=== PATIENT | female | born 1970 | race Caucasian/White ===

== ENCOUNTER 2016-09-20 14:15 | Inpatient (IN) ==
[2016-09-20] MEDS ORDERED: HYDROmorphone 2 MG/1 ML VIAL IV STA ×2 (14:44→16:10)
[2016-09-20] MEDS ORDERED: ONDANSETRON 4 MG/2 ML VIAL IV STA (14:44)
[2016-09-20] MEDS ORDERED: HYDROmorphone 2 MG/1 ML VIAL ONE (14:53)
[2016-09-20] MEDS ORDERED: ONDANSETRON 4 MG/2 ML VIAL ONE (14:53)
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
[2016-09-20 16:40] LABS: Basophils # 0.1 10*3/uL (0.0-0.2); Basophils % 0.4 % (0.0-0.8); Eosinophils # 0.3 10*3/uL (0.0-0.87); Eosinophils % 1.9 % (0.00-10.9); Hematocrit 40.9 VOL% (35.7-47.0); Hemoglobin 13.9 GM/DL (12.0-16.0); Immature Granulocytes Absolute 0.13 #; Lymphocytes # 2.6 10*3/uL (1.4-4.0); Lymphocytes % 19.3 % (21.3-54.2); Mean Corpuscular Hemoglobin 31 PG (27-34); Mean Corpuscular Volume 90.5 FL (87-102); Mean Platelet Volume 9.5 FL (9.6-12.0); Monocytes # 0.7 10*3/uL (0.11-0.8); Monocytes % 5.5 % (1.7-12.7); Neutrophils # 9.6 10*3/uL (1.4-7.4); Neutrophils % 71.9 % (38.7-73.9); Platelet Count 317 T/CUMM (130-400); Red Blood Count 4.52 MC/CUMM (3.8-5.5); Red Cell Distribution Width 12.4 % (9.3-17.3); White Blood Count 13.4 T/CUMM (4-12)
[2016-09-20] MEDS ORDERED: ACETAMINOPHEN 325 MG TABLET PO PRN (16:41)
[2016-09-20] MEDS ORDERED: ONDANSETRON 4 MG/2 ML VIAL IV PRN (16:41)
[2016-09-20 16:47] LABS: PT Patient Result 10.4 SECS; Partial Thromboplastin Time 28.8 SECS (0-40)
--- NOTE | 2016-09-20 17:09 | XRay Report ---
XR foot 2V RT Clinical Information: post reduction Comparison: Prior radiograph 09/20/2016 at 3:14 PM Findings: Again, there is a mildly comminuted acute fracture of the base of the great toe metatarsal bone. The amount of dorsal subluxation is decreased on the current study lateral view. Overlying soft tissue swelling however remains noted. Again, there is irregularity at the proximal phalanx of the great toe suspicious for a nondisplaced fracture. Impression: As above. PROCEDURE INTERPRETED AT [facility] DEPARTMENT OF RADIOLOGY Final Report Signed by: Seth Young
[2016-09-20 17:20] LABS: Alanine Aminotransferase 151 U/L (13-56); Albumin 4.1 G/DL (3.4-5.0); Alkaline Phosphatase 65 U/L (45-117); Aspartate Amino Transferase 142 U/L (0-37); Bilirubin,Total < 0.39 MG/DL (0.2-1.0); Blood Urea Nitrogen 17 MG/DL (7-18); Calcium 9.4 MG/DL (8.5-10.1); Glucose 106 MG/DL (74-106); Osmolality,Calculated 280.4 MOS/KG (273-304); Potassium 3.8 MMOL/L (3.5-5.1); Sodium 140 MMOL/L (136-145); Total Protein 7.5 G/DL (6.4-8.3)
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
[2016-09-20] MEDS: ALBUTEROL/IPRATROPIUM 3 ML NEB RESP TX SCH (19:15)
[2016-09-20] MEDS: HYDROmorphone 2 MG/1 ML VIAL IV PRN ×2 (20:19→23:58)
[2016-09-20] MEDS: DEXTROSE 5% NACL 0.45% 1,000 ML IV SCH (20:19)
[2016-09-21] MEDS: ALBUTEROL/IPRATROPIUM 3 ML NEB RESP TX SCH ×4 (00:25→19:18)
[2016-09-21] MEDS: DEXTROSE 5% NACL 0.45% 1,000 ML IV SCH (02:19)
[2016-09-21] MEDS: HYDROmorphone 2 MG/1 ML VIAL IV PRN ×5 (04:15→20:14)
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
[2016-09-21] MEDS ORDERED: ceFAZolin 2,000 MG in PREMIX 1 EACH IV ONE (06:50)
[2016-09-21] MEDS ORDERED: MIDAZOLAM 2 MG/2 ML VIAL ONE (08:53)
[2016-09-21] MEDS ORDERED: ROPIVACAINE 0.5% 30 ML VIAL ONE (08:53)
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
[2016-09-21] MEDS ORDERED: fentaNYL 100 MCG/2 ML VIAL ONE (08:54)
[2016-09-21] MEDS ORDERED: LIDOCAINE 2% 5 ML VIAL ONE (10:06)
[2016-09-21] MEDS ORDERED: ESMOLOL 100 MG/10 ML VIAL IV ONE (10:06)
[2016-09-21] MEDS ORDERED: ONDANSETRON 4 MG/2 ML VIAL ONE ×2 (10:06→11:48)
[2016-09-21] MEDS ORDERED: PROPOFOL 200 MG/20 ML VIAL IV ONE (10:06)
--- NOTE | 2016-09-21 11:28 | XRay Report ---
Referring Physician: Brian Yeager Exam: XR foot 2V RT Date: September 21, 2016 at 9:55 AM Reason: ORIF right foot Comparison: Right foot x-rays September 20, 2016 Findings: 2 images of the right foot were provided after performance of the procedure. Fluoroscopy time was 10 seconds. Images demonstrate surgical pinning of the first digit, traversing the first tarsometatarsal joint. Position and alignment appear satisfactory. Several known fractures are present. They are better demonstrated on the recent CT. Impression: Images are presumed satisfactory for treatment planning purposes. PROCEDURE INTERPRETED AT [facility] DEPARTMENT OF RADIOLOGY Final Report Signed by: Dr. Manjit Ibrahim
[2016-09-21] MEDS ORDERED: HYDROmorphone 2 MG/1 ML VIAL ONE (11:47)
[2016-09-21] MEDS ORDERED: ONDANSETRON 4 MG/2 ML VIAL IV PRN (11:47)
--- NOTE | 2016-09-21 11:54 | Anesthesia Post-Op ---
Anesthesia Post OP - Post Ansesthetic Evaluation Patient seen in post op: Yes Resp: within normal limits CV: within normal limits Mental: within normal limits Temp: within normal limits [id number]: within normal limits Nausea and Vomiting: within normal limits Pain: within normal limits
[2016-09-21] MEDS: PANTOPRAZOLE 40 MG TABLET PO SCH (13:51)
[2016-09-21] MEDS: ACETAMINOPHEN 500 MG TABLET PO SCH ×2 (17:14→22:09)
[2016-09-21] MEDS: LACTATED RINGERS 1,000 ML IV SCH (17:22)
[2016-09-21] MEDS: ceFAZolin 2,000 MG in PREMIX 1 EACH IV SCH (17:25)
[2016-09-22] MEDS: HYDROmorphone 2 MG/1 ML VIAL IV PRN ×5 (01:14→20:42)
[2016-09-22] MEDS ORDERED: PROPRANOLOL 40 MG TABLET PO ONE (01:22)
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
[2016-09-22 01:49] LABS: Basophils % 0.6 % (0.0-0.8); Eosinophils % 3.7 % (0.00-10.9); Hemoglobin 11.4 GM/DL (12.0-16.0); Immature Granulocytes % 0.8 %; Lymphocytes % 37.5 % (21.3-54.2); Mean Corpuscular HGB Conc 35.6 GM/DL (32-36); Mean Corpuscular Hemoglobin 31 PG (27-34); Mean Corpuscular Volume 87.4 FL (87-102); Monocytes % 9.2 % (1.7-12.7); Neutrophils % 48.2 % (38.7-73.9); Platelet Count 241 T/CUMM (130-400); Red Blood Count 3.66 MC/CUMM (3.8-5.5); Red Cell Distribution Width 12.2 % (9.3-17.3); White Blood Count 5.1 T/CUMM (4-12)
[2016-09-22 01:50] LABS: Eosinophils # 0.2 10*3/uL (0.0-0.87); Immature Granulocytes Absolute 0.04 #; Lymphocytes # 1.9 10*3/uL (1.4-4.0); Monocytes # 0.5 10*3/uL (0.11-0.8); Neutrophils # 2.5 10*3/uL (1.4-7.4)
[2016-09-22] MEDS ORDERED: ceFAZolin 2,000 MG in PREMIX 1 EACH IV ONE (02:00)
[2016-09-22] MEDS ORDERED: PROPRANOLOL LA 80 MG CAPSULE PO ONE (02:00)
[2016-09-22 02:13] LABS: Alanine Aminotransferase 247 U/L (13-56); Albumin 3.4 G/DL (3.4-5.0); Alkaline Phosphatase 78 U/L (45-117); Aspartate Amino Transferase 224 U/L (0-37); Blood Urea Nitrogen 6 MG/DL (7-18); Calcium 8.3 MG/DL (8.5-10.1); Glucose 113 MG/DL (74-106); Osmolality,Calculated 279.3 MOS/KG (273-304); Potassium 3.5 MMOL/L (3.5-5.1); Sodium 141 MMOL/L (136-145); Total Protein 6.3 G/DL (6.4-8.3); Troponin I Only < 0.015 NG/ML (0.00-0.045)
[2016-09-22] MEDS: ceFAZolin 2,000 MG in PREMIX 1 EACH IV SCH (02:19)
[2016-09-22] MEDS: ACETAMINOPHEN 500 MG TABLET PO SCH ×2 (02:29→08:44)
[2016-09-22] MEDS: ALBUTEROL/IPRATROPIUM 3 ML NEB RESP TX SCH ×4 (02:46→19:13)
[2016-09-22] MEDS: LACTATED RINGERS 1,000 ML IV SCH (05:43)
[2016-09-22] MEDS: ENOXAPARIN 40 MG/0.4 ML SYRINGE SUBCUT SCH (06:01)
--- NOTE | 2016-09-22 07:18 | XRay Report ---
Referring Physician: Aramis Tran MD Exam: XR chest 1V Date: September 22, 2016 at 12:51 AM Reason: Chest pain Comparison: Chest one view portable October 12, 2015 Findings: The cardiac silhouette is normal in size. The right hemidiaphragm is again mildly elevated. There are right perihilar and bibasilar opacities. This likely represents atelectasis and possibly pneumonia. No pneumothorax is identified. No acute osseous process is seen. Impression: There are right perihilar and bibasilar opacities. This likely represents atelectasis and possibly pneumonia. Follow-up is recommended to confirm resolution. PROCEDURE INTERPRETED AT [facility] DEPARTMENT OF RADIOLOGY Final Report Signed by: Dr. Manjit Ibrahim
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
[2016-09-22] MEDS: ASPIRIN EC 81 MG TABLET PO SCH (08:42)
[2016-09-22] MEDS: hydroCHLOROthiazide 25 MG TABLET PO SCH (08:42)
[2016-09-22] MEDS: GABAPENTIN 300 MG CAPSULE PO SCH ×2 (08:42→20:42)
[2016-09-22] MEDS: metFORMIN 500 MG TABLET PO SCH ×2 (08:42→18:17)
[2016-09-22] MEDS: POTASSIUM CITRATE 10 MEQ TABLET PO SCH ×2 (08:43→20:41)
[2016-09-22] MEDS: ALLOPURINOL 300 MG TABLET PO SCH (08:43)
[2016-09-22] MEDS: LACTOBACILLUS ACIDOPHILUS/BULGARICUS CAPLET PO SCH (08:43)
[2016-09-22] MEDS: PANTOPRAZOLE 40 MG TABLET PO SCH (08:43)
[2016-09-22] MEDS ORDERED: GLUCAGON 1 MG VIAL IM PRN (08:57)
[2016-09-22] MEDS ORDERED: DEXTROSE 50% 25 GM/50 ML VIAL IV PRN (08:57)
[2016-09-22] MEDS ORDERED: NON-FORMULARY MEDICATION (Omeprazole [Prilosec] 40 MG) PO SCH (09:00)
[2016-09-22] MEDS ORDERED: PROPRANOLOL LA 80 MG CAPSULE PO SCH (09:00)
--- NOTE | 2016-09-22 09:50 | EKG Report ---
Stationary ECG Study [facility] Test Date: 09/22/2016 12:41:41 AM Pat Name: MICHELL CHRISTENSEN Department: Room: 116 Gender: F [employer]otive Finance Manager: : 1970 Requested by: Aramis Tran Order Number: [id number] Reading MD: LENKA NIETO Intervals [place] Rate: 126 P: 59 PA: 153 QRS: 71 QRSD: 106 T: 98 QT: 299 QTc: 374 Interpretive Statements SINUS TACHYCARDIA Electronically Signed On 09-22-16 16:10:43 CDT by LENKA NIETO [email or web address]
[2016-09-22] MEDS: INSULIN REGULAR 100 UNIT/ML SUBCUT SCH ×3 (11:21→20:13)
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
[2016-09-22] MEDS: LIRAGLUTIDE 1.2 UNIT SUBCUT SCH (14:45)
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
--- NOTE | 2016-09-22 16:07 | ECHO Report ---
Greta العراقي Exam Date: 09/22/2016 15:28 Referring Physician: Technologist: Gillian Miles RDCS Age: 46 Ht (in): 62 Wt (lb): 246 Gender: F Exam Location: [facility] Echo pain, unspecified, Shortness of breath, Essential (primary) hypertension, Nicotine dependence, cigarettes, uncomplicated, Elevated LFTs, NIDDM, ZAFAR, Dyslipidemia, GERD, Tachycardia, unspecified BP: 113 / 58 HR: 96 Rhythm: Sinus Technical Quality: Technically difficult study IMPRESSIONS Technically difficult study Left ventricular ejection fraction is estimated at 60 %. No significant valvular disease is seen. There is no pericardial effusion or other abnormality. MEASUREMENTS (Male / Female) Normal Values 2D ECHO LV Diastolic Diameter PLAX 4.2 cm 4.2 - 5.9 / 3.9 - 5.3 cm LV Systolic Diameter PLAX 2.9 cm LV Fractional Shortening PLAX 30.9 % IVS Diastolic Thickness 0.9 cm 0.6 - 1.0 / 0.6 - 0.9 cm LVPW Diastolic Thickness 0.9 cm 0.6 - 1.0 / 0.6 - 0.9 cm RV Internal Dim ED PLAX 2.1 cm Aortic Root Diameter 2.5 cm LA Systolic Diameter LX 3.1 cm 3.0 - 4.0 / 2.7 - 3.8 cm DOPPLER TR Peak Velocity 297.0 cm/s TR Peak Gradient 35.3 mmHg FINDINGS Left Ventricle Normal left ventricular cavity size. Normal left ventricular wall thickness. Left ventricular ejection fraction is estimated at 60 %. Right Ventricle The right ventricle is normal in size and function. Right Atrium The right atrium is normal in size. Left Atrium The left atrium is normal in size. Mitral Valve Morphologically normal mitral valve without significant stenosis or prolapse. There is no mitral regurgitation. Aortic Valve Morphologically normal aortic valve without significant sclerosis or stenosis. There is no aortic regurgitation. Tricuspid Valve Morphologically normal tricuspid valve without significant stenosis or regurgitation. Pulmonary artery systolic pressure is normal. Pulmonic Valve Morphologically normal pulmonic valve without significant stenosis. There is no pulmonic regurgitation. Pericardium Normal pericardium without effusion. Aorta Normal ascending aorta dimension. Brian Larry (Electronically Signed) Final Date: 22 Sep 2016 16:06
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
[2016-09-22] MEDS: FENOFIBRATE 145 MG TABLET PO SCH (20:41)
[2016-09-22] MEDS: PROPRANOLOL LA 80 MG CAPSULE PO SCH (20:42)
[2016-09-22] MEDS: AMITRIPTYLINE 25 MG TABLET PO SCH (20:42)
[2016-09-22] MEDS ORDERED: ROSUVASTATIN 10 MG TABLET PO SCH (21:00)
[2016-09-23] MEDS: ALBUTEROL/IPRATROPIUM 3 ML NEB RESP TX SCH ×4 (01:47→19:07)
[2016-09-23] MEDS: HYDROmorphone 2 MG/1 ML VIAL IV PRN ×2 (02:04→18:37)
[2016-09-23] MEDS: ENOXAPARIN 40 MG/0.4 ML SYRINGE SUBCUT SCH (04:32)
[2016-09-23 07:29] LABS: Basophils % 0.5 % (0.0-0.8); Eosinophils # 0.3 10*3/uL (0.0-0.87); Eosinophils % 4.1 % (0.00-10.9); Hematocrit 30.7 VOL% (35.7-47.0); Hemoglobin 10.8 GM/DL (12.0-16.0); Immature Granulocytes % 0.5 %; Immature Granulocytes Absolute 0.03 #; Lymphocytes # 2.3 10*3/uL (1.4-4.0); Lymphocytes % 37.9 % (21.3-54.2); Mean Corpuscular HGB Conc 35.2 GM/DL (32-36); Mean Corpuscular Hemoglobin 31 PG (27-34); Mean Corpuscular Volume 87.5 FL (87-102); Monocytes # 0.5 10*3/uL (0.11-0.8); Monocytes % 8.5 % (1.7-12.7); Neutrophils % 48.5 % (38.7-73.9); Platelet Count 242 T/CUMM (130-400); Red Blood Count 3.51 MC/CUMM (3.8-5.5); Red Cell Distribution Width 12.5 % (9.3-17.3); White Blood Count 6.1 T/CUMM (4-12)
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
[2016-09-23 08:01] LABS: Bilirubin,Total 0.6 MG/DL (0.2-1.0); Calcium 8.3 MG/DL (8.5-10.1); Osmolality,Calculated 275.5 MOS/KG (273-304); Potassium 3.6 MMOL/L (3.5-5.1)
[2016-09-23] MEDS: INSULIN REGULAR 100 UNIT/ML SUBCUT SCH ×4 (08:03→21:20)
[2016-09-23] MEDS: hydroCHLOROthiazide 25 MG TABLET PO SCH (08:30)
[2016-09-23] MEDS: GABAPENTIN 300 MG CAPSULE PO SCH ×2 (08:30→21:23)
[2016-09-23] MEDS: ALLOPURINOL 300 MG TABLET PO SCH (08:30)
[2016-09-23] MEDS: ASPIRIN EC 81 MG TABLET PO SCH (08:31)
[2016-09-23] MEDS: PANTOPRAZOLE 40 MG TABLET PO SCH (08:31)
[2016-09-23] MEDS: POTASSIUM CITRATE 10 MEQ TABLET PO SCH ×2 (08:31→21:22)
[2016-09-23] MEDS: LACTOBACILLUS ACIDOPHILUS/BULGARICUS CAPLET PO SCH (08:31)
[2016-09-23] MEDS: LIRAGLUTIDE 1.2 UNIT SUBCUT SCH (08:35)
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
[2016-09-23 09:28] LABS: Hepatitis A Ab IgM Quant 0.08 Index; Hepatitis A Ab IgM Result Negative (Negative); Hepatitis B Core IgM Quant 0.24 Index; Hepatitis B Core IgM Result Negative (Negative); Hepatitis B Surface Ag Quant 0.25 Index; Hepatitis B Surface Ag Result Negative (Negative); Hepatitis C Virus Ab Quant 0.12 Index; Hepatitis C Virus Ab Result Negative (Negative)
[2016-09-23] MEDS: metFORMIN 500 MG TABLET PO SCH (10:50)
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
[2016-09-23] MEDS: FENOFIBRATE 145 MG TABLET PO SCH (21:21)
[2016-09-23] MEDS: AMITRIPTYLINE 25 MG TABLET PO SCH (21:23)
[2016-09-23] MEDS: PROPRANOLOL LA 80 MG CAPSULE PO SCH (21:23)
[2016-09-24] MEDS: ALBUTEROL/IPRATROPIUM 3 ML NEB RESP TX SCH ×3 (00:23→12:40)
[2016-09-24 05:02] LABS: Basophils % 0.5 % (0.0-0.8); Eosinophils # 0.3 10*3/uL (0.0-0.87); Eosinophils % 5.2 % (0.00-10.9); Hematocrit 32.6 VOL% (35.7-47.0); Hemoglobin 11.2 GM/DL (12.0-16.0); Immature Granulocytes % 0.7 %; Immature Granulocytes Absolute 0.04 #; Lymphocytes # 2.6 10*3/uL (1.4-4.0); Lymphocytes % 44.4 % (21.3-54.2); Mean Corpuscular HGB Conc 34.4 GM/DL (32-36); Mean Corpuscular Hemoglobin 30 PG (27-34); Mean Corpuscular Volume 88.6 FL (87-102); Mean Platelet Volume 8.9 FL (9.6-12.0); Monocytes # 0.5 10*3/uL (0.11-0.8); Monocytes % 8.7 % (1.7-12.7); Neutrophils # 2.4 10*3/uL (1.4-7.4); Neutrophils % 40.5 % (38.7-73.9); Platelet Count 286 T/CUMM (130-400); Red Blood Count 3.68 MC/CUMM (3.8-5.5); Red Cell Distribution Width 12.1 % (9.3-17.3)
[2016-09-24 05:34] LABS: Albumin 3.1 G/DL (3.4-5.0); Bilirubin,Total 0.6 MG/DL (0.2-1.0); Osmolality,Calculated 273.7 MOS/KG (273-304); Potassium 3.6 MMOL/L (3.5-5.1); Total Protein 6.2 G/DL (6.4-8.3)
[2016-09-24] MEDS: ENOXAPARIN 40 MG/0.4 ML SYRINGE SUBCUT SCH (07:25)
[2016-09-24] MEDS: INSULIN REGULAR 100 UNIT/ML SUBCUT SCH ×2 (07:59→11:30)
--- NOTE | 2016-09-24 08:24 | Orthopedic Progress Note ---
Assessment and Plan (1) Metatarsal fracture Status: Acute Assessment and plan: XR R knee/elbow NWB RLE Ok to d/c home wheelchair for mobilization Current Visit: Yes Qualifiers: Encounter type: initial encounter Metatarsal bone: first Fracture type: closed Fracture alignment: displaced Laterality: right Qualified Code(s): S92.311A - Displaced fracture of first metatarsal bone, right foot, initial encounter for closed fracture (2) Navicular fracture of ankle Status: Acute Assessment and plan: see above Current Visit: Yes Qualifiers: Encounter type: initial encounter Fracture type: closed Fracture alignment: nondisplaced (3) Cuneiform fracture, foot Status: Acute Assessment and plan: see above Current Visit: Yes Orthopedics - Subjective Interval history: c/o R knee and R elbow pain splint clean and dry, sensate in toes Exam - Constitutional Vitals: Period Temp Pulse Resp BP Sys/Matthew Pulse Ox Last 24 Hr 97.1 F-98.8 F 79-106 15-22 101-138/66-80 93-99 Results - Labs CBC & BMP: 09/24/16 04:38 09/24/16 04:38 Specialty Discharge - Follow Up or Referrals Follow up with: Brian Yeager MD [Physician] - 10/07/16 1:30 pm
[2016-09-24] MEDS: DEXTROSE 5% NACL 0.45% 1,000 ML IV SCH (08:26)
[2016-09-24] MEDS: LACTATED RINGERS 1,000 ML IV SCH (08:27)
[2016-09-24] MEDS: ALLOPURINOL 300 MG TABLET PO SCH (08:57)
[2016-09-24] MEDS: ASPIRIN EC 81 MG TABLET PO SCH (08:57)
[2016-09-24] MEDS: POTASSIUM CITRATE 10 MEQ TABLET PO SCH (08:57)
[2016-09-24] MEDS: PANTOPRAZOLE 40 MG TABLET PO SCH (08:57)
[2016-09-24] MEDS: LACTOBACILLUS ACIDOPHILUS/BULGARICUS CAPLET PO SCH (08:57)
[2016-09-24] MEDS: hydroCHLOROthiazide 25 MG TABLET PO SCH (08:57)
[2016-09-24] MEDS: GABAPENTIN 300 MG CAPSULE PO SCH (08:57)
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
[2016-09-24] MEDS: LIRAGLUTIDE 1.2 UNIT SUBCUT SCH (10:10)
[2016-09-24 11:46] VITALS: BP 107/65
== END 2016-09-24 14:16 | disposition home or self-care (01) | DRG 504 ==
LOC: EDBD → EDUNIT# → N.EDINP 14:15 → N.ED 14:15 → N.3E 18:25 → N.ICU 09-22 00:59 → N.3E 09-23 11:36
PROVIDERS: ADMIT Surgery; ATTEND Surgery

== ENCOUNTER 2016-09-26 00:30 | Inpatient (IN) ==
[2016-09-26] MEDS ORDERED: ONDANSETRON 4 MG/2 ML VIAL IV STA (01:09)
[2016-09-26] MEDS ORDERED: HYDROmorphone 2 MG/1 ML VIAL IV STA (01:09)
[2016-09-26] MEDS ORDERED: ONDANSETRON 4 MG/2 ML VIAL ONE (01:16)
[2016-09-26] MEDS ORDERED: HYDROmorphone 2 MG/1 ML VIAL ONE (01:17)
[2016-09-26 01:28] LABS: Basophils # 0.1 10*3/uL (0.0-0.2); Basophils % 0.6 % (0.0-0.8); Eosinophils # 0.3 10*3/uL (0.0-0.87); Eosinophils % 3.7 % (0.00-10.9); Hematocrit 35.9 VOL% (35.7-47.0); Hemoglobin 12.4 GM/DL (12.0-16.0); Immature Granulocytes % 0.7 %; Immature Granulocytes Absolute 0.06 #; Lymphocytes # 2.9 10*3/uL (1.4-4.0); Lymphocytes % 34.8 % (21.3-54.2); Mean Corpuscular HGB Conc 34.5 GM/DL (32-36); Mean Corpuscular Hemoglobin 31 PG (27-34); Mean Corpuscular Volume 88.4 FL (87-102); Mean Platelet Volume 9.1 FL (9.6-12.0); Monocytes # 0.7 10*3/uL (0.11-0.8); Monocytes % 8.4 % (1.7-12.7); Neutrophils # 4.3 10*3/uL (1.4-7.4); Neutrophils % 51.8 % (38.7-73.9); Platelet Count 389 T/CUMM (130-400); Red Blood Count 4.06 MC/CUMM (3.8-5.5); Red Cell Distribution Width 12.3 % (9.3-17.3); White Blood Count 8.3 T/CUMM (4-12)
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
[2016-09-26 01:48] LABS: Calcium 9.8 MG/DL (8.5-10.1); Osmolality,Calculated 278.4 MOS/KG (273-304); Potassium 3.9 MMOL/L (3.5-5.1)
[2016-09-26] MEDS ORDERED: ONDANSETRON 4 MG/2 ML VIAL IV PRN (02:26)
[2016-09-26] MEDS ORDERED: DEXTROSE 50% 25 GM/50 ML VIAL IV PRN (02:26)
[2016-09-26] MEDS ORDERED: BISACODYL 5 MG TABLET PO PRN (02:26)
[2016-09-26] MEDS ORDERED: GLUCAGON 1 MG VIAL IM PRN (02:26)
[2016-09-26] MEDS ORDERED: ACETAMINOPHEN 325 MG TABLET PO PRN (02:26)
[2016-09-26] MEDS ORDERED: HYDROmorphone 2 MG/1 ML VIAL IV PRN (02:27)
--- NOTE | 2016-09-26 07:45 | CT Report ---
EXAM: CT chest PE study DATE: September 26, 2016 COMPARISON: CT chest, abdomen and pelvis September 20, 2016 REASON: Prior sternal fracture and rib fracture, shortness of breath Preliminary report was provided by [facility]. TECHNIQUE: Axial images of the chest were obtained after administration of 80 cc of Omnipaque 350 intravenous contrast. Coronal and sagittal reformatted images were also acquired. The study was performed per pulmonary embolism protocol. Total DLP was 561.1 mGy*cm. FINDINGS: Pulmonary arteries: There is no evidence of pulmonary embolism through the segmental pulmonary arteries. Vascular/heart: The thoracic aorta is normal in size without evidence of dissection. The heart is normal in size, and no pericardial effusion is seen. Lymph nodes: No suspicious adenopathy is identified at the chest. Other mediastinum: No mediastinal hematoma is seen. Chest wall: There is subcutaneous fat stranding at the left chest/breast and overlying the sternum. This is consistent with soft tissue contusion, and similar findings are seen on the previous study. Lungs: There has been interval development of a small left pleural effusion. No pneumothorax is identified. There are scattered opacities within both lungs, most prominent within the left lower lobe. This likely represents atelectasis and possibly pulmonary contusion or pneumonia. Bones: There is minimal height loss at the superior endplates of T5, T6, T7 and T8. This is stable and could represent minimal indeterminate age compression fractures or prominent Schmorl's nodes. No retropulsion is seen, and these findings may be chronic. There is again a mildly displaced fracture of the upper aspect of the sternum with minimal adjacent fat stranding. There are also displaced fractures of the anterolateral aspects of the left fifth, sixth, seventh and eighth ribs as on the previous study. A nondisplaced fracture of the right posterior 10th rib is also seen. This was likely present on the previous study but is better demonstrated on today's study. Upper abdomen: No acute process is seen within the visualized upper abdomen. IMPRESSION: 1. No evidence of pulmonary embolism. 2. There is again a mildly displaced fracture of the sternum and fractures of the left anterolateral fifth through eighth ribs. A nondisplaced fracture is also seen at the right posterior 10th rib. It was likely present on the previous study but is better demonstrated on today's study. 3. There has been interval development of a small left pleural effusion. There are also scattered opacities within both lower lung zones, most prominent within the left lower lobe. This likely represents atelectasis and possibly pulmonary contusion or pneumonia. 4. There is subcutaneous fat stranding at the left chest/breast and overlying the sternum. This is consistent with soft tissue contusion, and similar findings are seen on the previous study. PROCEDURE INTERPRETED AT [facility] DEPARTMENT OF RADIOLOGY Final Report Signed by: Dr. Manjit Ibrahim
[2016-09-26] MEDS: MORPHINE 2 MG/1 ML SYRINGE IV PRN ×3 (08:10→22:01)
[2016-09-26] MEDS: INSULIN LISPRO 100 UNIT/ML SUBCUT SCH ×4 (08:14→23:59)
[2016-09-26] MEDS: PANTOPRAZOLE 40 MG TABLET PO SCH (08:19)
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
[2016-09-26] MEDS: SODIUM CHLORIDE 0.9% 1,000 ML IV SCH (11:28)
[2016-09-26] MEDS: POLYETHYLENE GLYCOL POWDER 17 GM PACK PO SCH (15:12)
[2016-09-26] MEDS: GABAPENTIN 300 MG CAPSULE PO SCH (21:59)
[2016-09-26] MEDS: DOCUSATE SODIUM 100 MG CAPSULE PO SCH (21:59)
[2016-09-26] MEDS: AMITRIPTYLINE 25 MG TABLET PO SCH (22:00)
[2016-09-26] MEDS: FENOFIBRATE 145 MG TABLET PO SCH (22:00)
[2016-09-27] MEDS: SODIUM CHLORIDE 0.9% 1,000 ML IV SCH ×2 (00:55→15:59)
[2016-09-27] MEDS: MORPHINE 2 MG/1 ML SYRINGE IV PRN ×3 (05:20→17:50)
[2016-09-27 05:32] LABS: Basophils % 0.5 % (0.0-0.8); Eosinophils # 0.2 10*3/uL (0.0-0.87); Eosinophils % 3.8 % (0.00-10.9); Hematocrit 29.4 VOL% (35.7-47.0); Hemoglobin 10.1 GM/DL (12.0-16.0); Immature Granulocytes % 1.1 %; Immature Granulocytes Absolute 0.06 #; Lymphocytes # 2.4 10*3/uL (1.4-4.0); Mean Corpuscular HGB Conc 34.4 GM/DL (32-36); Mean Corpuscular Hemoglobin 31 PG (27-34); Mean Corpuscular Volume 88.8 FL (87-102); Mean Platelet Volume 9.1 FL (9.6-12.0); Monocytes # 0.4 10*3/uL (0.11-0.8); Monocytes % 7.6 % (1.7-12.7); Neutrophils # 2.4 10*3/uL (1.4-7.4); Platelet Count 292 T/CUMM (130-400); Red Blood Count 3.31 MC/CUMM (3.8-5.5); Red Cell Distribution Width 12.6 % (9.3-17.3); White Blood Count 5.5 T/CUMM (4-12)
[2016-09-27 05:52] LABS: Bilirubin,Total 0.8 MG/DL (0.2-1.0); Calcium 8.7 MG/DL (8.5-10.1); Osmolality,Calculated 279.3 MOS/KG (273-304); Potassium 3.7 MMOL/L (3.5-5.1); Total Protein 5.7 G/DL (6.4-8.3)
[2016-09-27] MEDS: INSULIN LISPRO 100 UNIT/ML SUBCUT SCH ×4 (08:12→22:04)
[2016-09-27] MEDS: LIRAGLUTIDE 1.2 UNIT SUBCUT SCH (08:47)
[2016-09-27] MEDS: MULTIVITAMIN (CENTRUM) TABLET PO SCH (08:51)
[2016-09-27] MEDS: ASPIRIN EC 81 MG TABLET PO SCH (08:51)
[2016-09-27] MEDS: PANTOPRAZOLE 40 MG TABLET PO SCH (08:51)
[2016-09-27] MEDS: DOCUSATE SODIUM 100 MG CAPSULE PO SCH ×2 (08:52→22:00)
[2016-09-27] MEDS: GABAPENTIN 300 MG CAPSULE PO SCH ×2 (08:52→22:00)
[2016-09-27] MEDS: hydroCHLOROthiazide 25 MG TABLET PO SCH (08:53)
[2016-09-27] MEDS: ALLOPURINOL 300 MG TABLET PO SCH (08:54)
[2016-09-27] MEDS ORDERED: PROPRANOLOL LA 80 MG CAPSULE PO SCH (09:00)
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
[2016-09-27] MEDS: POLYETHYLENE GLYCOL POWDER 17 GM PACK PO SCH ×4 (10:30→22:03)
[2016-09-27] MEDS: ENALAPRIL 2.5 MG TABLET PO SCH (11:02)
[2016-09-27] MEDS: AMITRIPTYLINE 25 MG TABLET PO SCH (22:00)
[2016-09-27] MEDS: FENOFIBRATE 145 MG TABLET PO SCH (22:00)
[2016-09-27] MEDS: PROPRANOLOL 40 MG TABLET PO SCH (22:01)
[2016-09-28] MEDS: MORPHINE 2 MG/1 ML SYRINGE IV PRN ×2 (02:08→18:20)
[2016-09-28] MEDS: SODIUM CHLORIDE 0.9% 1,000 ML IV SCH (04:07)
[2016-09-28] MEDS: LIRAGLUTIDE 1.2 UNIT SUBCUT SCH (08:00)
[2016-09-28] MEDS: ALLOPURINOL 300 MG TABLET PO SCH (08:59)
[2016-09-28] MEDS: DOCUSATE SODIUM 100 MG CAPSULE PO SCH ×2 (08:59→20:24)
[2016-09-28] MEDS: POLYETHYLENE GLYCOL POWDER 17 GM PACK PO SCH ×3 (08:59→20:25)
[2016-09-28] MEDS: MULTIVITAMIN (CENTRUM) TABLET PO SCH (08:59)
[2016-09-28] MEDS: PANTOPRAZOLE 40 MG TABLET PO SCH (08:59)
[2016-09-28] MEDS: ASPIRIN EC 81 MG TABLET PO SCH (08:59)
[2016-09-28] MEDS: hydroCHLOROthiazide 25 MG TABLET PO SCH (08:59)
[2016-09-28] MEDS: GABAPENTIN 300 MG CAPSULE PO SCH ×2 (08:59→20:23)
[2016-09-28] MEDS: ENALAPRIL 2.5 MG TABLET PO SCH (09:00)
--- NOTE | 2016-09-28 09:28 | Orthopedic Progress Note ---
Assessment and Plan (1) Metatarsal fracture Status: Acute Assessment and plan: Operative fracture: -First metatarsal: Status post closed reduction and pinning Nonoperative fractures: -Great toe proximal phalanx -Third and fourth metatarsal base -Navicular -Middle cuneiform Patient will be nonweightbearing on the right lower extremity for approximately 6 weeks. Okay for therapy for gait training, upper extremity strengthening, transfers to wheelchair. Keep current follow-up appointment Elevate and ice right lower extremity Current Visit: Yes Qualifiers: Encounter type: initial encounter Metatarsal bone: first Fracture type: closed Fracture alignment: displaced Laterality: right Qualified Code(s): S92.311A - Displaced fracture of first metatarsal bone, right foot, initial encounter for closed fracture Orthopedics - Subjective Interval history: Patient readmitted secondary difficulty breathing and pain. Exam - Constitutional Vitals: Period Temp Pulse Resp BP Sys/Matthew Pulse Ox Last 24 Hr 96.4 F-98.5 F 84-103 17-22 105-138/55-66 97-99 Results - Labs CBC & BMP: 09/27/16 04:22 09/27/16 04:22
[2016-09-28] MEDS: INSULIN LISPRO 100 UNIT/ML SUBCUT SCH ×3 (12:43→18:30)
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
[2016-09-28] MEDS: ENOXAPARIN 40 MG/0.4 ML SYRINGE SUBCUT SCH (15:20)
[2016-09-28] MEDS: AMITRIPTYLINE 25 MG TABLET PO SCH (20:24)
[2016-09-28] MEDS: PROPRANOLOL 40 MG TABLET PO SCH (20:24)
[2016-09-28] MEDS: FENOFIBRATE 145 MG TABLET PO SCH (20:24)
[2016-09-29] MEDS: MORPHINE 2 MG/1 ML SYRINGE IV PRN (00:03)
[2016-09-29] MEDS: INSULIN LISPRO 100 UNIT/ML SUBCUT SCH ×2 (07:38→10:59)
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
[2016-09-29] MEDS: hydroCHLOROthiazide 25 MG TABLET PO SCH (10:59)
[2016-09-29] MEDS: ASPIRIN EC 81 MG TABLET PO SCH (10:59)
[2016-09-29] MEDS: DOCUSATE SODIUM 100 MG CAPSULE PO SCH (10:59)
[2016-09-29] MEDS: MULTIVITAMIN (CENTRUM) TABLET PO SCH (10:59)
[2016-09-29] MEDS: ENALAPRIL 2.5 MG TABLET PO SCH (11:00)
[2016-09-29] MEDS: ALLOPURINOL 300 MG TABLET PO SCH (11:00)
[2016-09-29] MEDS: PANTOPRAZOLE 40 MG TABLET PO SCH (11:00)
[2016-09-29] MEDS: GABAPENTIN 300 MG CAPSULE PO SCH (11:00)
[2016-09-29] MEDS: POLYETHYLENE GLYCOL POWDER 17 GM PACK PO SCH (11:00)
[2016-09-29] MEDS: LIRAGLUTIDE 1.2 UNIT SUBCUT SCH (11:00)
[2016-09-29 11:26] VITALS: BP 106/58
[2016-09-29] MEDS: ENOXAPARIN 40 MG/0.4 ML SYRINGE SUBCUT SCH (13:42)
== END 2016-09-29 13:45 | DRG 560 ==
LOC: EDBD → EDUNIT# → N.ED 00:30 → N.EDINP 02:26 → N.3E 02:56
PROVIDERS: ADMIT Surgery; ATTEND Surgery